=== PATIENT | male | born 1985 | race Caucasian/White ===

== ENCOUNTER → 2019-08-05 08:34 | Outpatient (CLI) | payer BC, SELFPAY ==
[2019-08-05 08:18] VITALS: BMI 25.9
--- NOTE | 2019-08-05 08:36 | RAD_ITS ---
STUDY: X-RAY - RIGHT RADIUS AND ULNA REASON FOR EXAM: Male, 33 years old. Wrist pain radiating to elbow. TECHNIQUE: 2 view(s) of the forearm. COMPARISON: None. FINDINGS: There is no demonstrated soft tissue swelling. Normal visualized radius. Normal visualized ulna. RAD/Forearm 2 Views IMPRESSION: No abnormality is present. Electronically Signed: Hu Conteh MD at 11:25 EDT , Service support ,
== END ==
PROVIDERS: Referring Provider Orthopaedic Surgery; Visit Provider Orthopaedic Surgery
DX: M25.531 Pain in right wrist (principal)
CPT/HCPCS: 73090

== ENCOUNTER → 2024-03-25 | Outpatient (CLI) | payer BC, SELFPAY ==
--- NOTE | 2024-03-25 10:17 | MRI_ITS ---
STUDY: MRI ARTHROGRAM OF THE LEFT SHOULDER REASON FOR EXAM: Male, 38 years old. OSTEOARTHRITIS OF LEFT AC JOINT, PAIN -- ARTHROGRAM TECHNIQUE: 10 mL of dilute Clariscan contrast was injected into the left glenohumeral joint. Standardized MRI was obtained in all 3 orthogonal planes. In addition, a fat-suppressed T1-weighted sequence was performed with the patient''s arm in the abduction external rotation (ABER) position. COMPARISON: Left shoulder radiographs dated 03/25/2024. FINDINGS: Normal supraspinatus tendon. Normal infraspinatus tendon. There is mild subscapularis tendinosis without a full-thickness tear. Normal teres minor tendon. Normal supraspinatus muscle. Normal infraspinatus muscle. Normal subscapularis muscle. Normal teres minor muscle. Normal glenohumeral articulation. There is small enthesopathic subcortical cyst formation of the greater tuberosity of the humeral head. Normal biceps labral complex. Normal intracapsular long biceps tendon. Normal labrum. Normal capsulo-ligamentous complex. Normal rotator interval. There is minimal acromioclavicular arthrosis. There is a Type II morphology (curved), with a neutral orientation. There is no subacromial-subdeltoid bursal fluid. Normal visualized coracohumeral and coracoacromial ligaments. Normal quadrilateral space. Normal axillary space. Normal deltoid muscle. Normal trapezius muscle. MRI/Upper Ext Jt Only W/Contrast IMPRESSION: Mild subscapularis tendinosis without a full-thickness rotator cuff tear. Minimal acromioclavicular arthrosis. No discrete labral tear. Electronically Signed: Omid Hobbs MD at 15:38 EDT ,
--- NOTE | 2024-03-25 10:18 | RAD_ITS ---
STUDY: X-RAY - LEFT SHOULDER REASON FOR EXAM: Male, 38 years old. ARTHROGRAM, PAIN TECHNIQUE: 2 view(s) of the shoulder. COMPARISON: None. FINDINGS: The patient is status post post left shoulder arthrogram for MRI imaging. RAD/Shoulder min 2 Views IMPRESSION: Left shoulder arthrogram for MRI imaging. Electronically Signed: Dong Alamo MD at 13:08 EDT ,
[2024-03-25] MEDS: Lidocaine 2% (5ml sdv) 5 ML VIAL.MPF INFILT (10:40)
[2024-03-25] MEDS: Gadoterate Meglumine Diluted 10 ML, Iopamidol 5 ML, Lidocaine 1% (20 ml mdv) 5 ML, Epin... INTRAARTIC (10:45)
[2024-03-25] MEDS: Iopamidol 10 ML in Syringe 1 EACH 600 ML INTRAARTIC (10:45)
--- NOTE | 2024-03-25 11:17 | PCM.OP.PRO ---
Procedure Report Date of Procedure: 03/25/24 Assessment & Plan Assessment/Plan (1) Left shoulder pain: QUALIFIERS: Chronicity: unspecified Qualified Code(s): M25.512 - Pain in left shoulder PLAN: PROCEDURE: Arthrogram-left shoulder ORDERING PROVIDER: Ilene Pollock INDICATION: Male, 38 years old. Left shoulder pain. PROVIDER: Evy Kunz APRN-[employer] CONSENT: The procedure as well as the benefits and possible complications including bleeding and infection were explained to the patient. Informed consent was obtained. TECHNIQUE: The patient was positioned supine. The overlying skin was prepped and draped in the usual sterile fashion. Following injection of local anesthetic with 2% lidocaine and under direct fluoroscopic guidance, a 22-gauge spinal needle was placed into the left glenohumeral joint space. 2 cc of Isovue 300 was injected for confirmation. Following this, 10 cc of arthrogram contrast (gadoterate, iopamidol, lidocaine, and epinephrine), compounded by pharmacy, was injected. All elements of maximal sterile barrier technique followed. Patient tolerated procedure well. IMPRESSION: Successful fluoroscopic guided left shoulder arthrogram. Procedures Radiology Radiology Xray Procedures: [id number] Arthrogram Shoulder
== END | disposition home or self-care (01) ==
LOC: RAD 10:06
PROVIDERS: PCP Physician Assistant
DX: M19.012 Primary osteoarthritis, left shoulder (principal); M25.512 Pain in left shoulder
CPT/HCPCS: 23350; 73030; 73222; 77002; Q9967